=== PATIENT | male | born 1985 | race Caucasian/White ===

== ENCOUNTER 2016-09-10 10:20 | Outpatient (RCR) | payer OTHER | END 2016-09-14 13:41 | LOC: WSOH 10:20 | DX: M25.512 Pain in left shoulder (principal) ==

== ENCOUNTER → 2018-03-01 | Outpatient (CLI) | payer OTHER | LOC: COL.RAD 02-28 12:30 | DX: M25.532 Pain in left wrist (principal) ==

== ENCOUNTER 2018-03-03 10:14 | Outpatient (RCR) | payer OTHER | END 2018-03-24 13:16 | disposition home or self-care (01) | LOC: WSOH 10:14 | DX: M25.532 Pain in left wrist (principal); W01.0XXA Fall on same level from slipping, tripping and stumbling without subsequent striking against object, initial encounter; Y99.0 Civilian activity done for income or pay; Y92.214 College as the place of occurrence of the external cause; Z87.891 Personal history of nicotine dependence; Z79.899 Other long term (current) drug therapy | CPT/HCPCS: 24091; A6549 ==

== ENCOUNTER 2021-01-30 18:34 | Emergency (ER) | payer BC ==
[~2021-01-30] VITALS: Ht 180.3 cm; Wt 122.7 kg
[2021-01-30 21:28] VITALS: BP 141/81; PULSE 61; TEMP 98.4
== END 2021-01-30 21:28 | disposition home or self-care (01) ==
LOC: COL.ER 18:34
DX: S01.01XA Laceration without foreign body of scalp, initial encounter (principal); W22.8XXA Striking against or struck by other objects, initial encounter

== ENCOUNTER → 2021-02-07 | Outpatient (CLI) | payer BC ==
[2021-02-07 12:00] VITALS: BP 131/78; PULSE 78; TEMP 98.4
== END ==
LOC: COL.ER 11:55
DX: Z48.02 Encounter for removal of sutures (principal)